=== PATIENT | male | born 1955 | race Caucasian/White ===

== ENCOUNTER → 2017-12-06 | Outpatient (CLI) | payer MEDICARE ==
[~2017-12-06] VITALS: Ht 190.5 cm; Wt 181.0 kg
[~2017-12-06] MED LIST: ASPIRIN 81M81 MG/TA2 PO; KLOR-CON M2020 MEQ PO; LASIX 40MG TABL40 MG PO; MIDAMOR 5MG TAB5 MG PO; PRINIVIL10 MG PO; SYNTHROID0.112 MG/T PO; TOPROL XL100 MG PO; ZAROXOLYN10 MG PO; ZYLOPRIM 300MG300 MG PO
[2017-12-06 11:12] VITALS: BP 134/75; PULSE 81
[2017-12-06 12:00] VITALS: BP 139/71; PULSE 78
[2017-12-06 12:10] VITALS: BP 120/71; PULSE 88
[2017-12-06 12:13] VITALS: BP 134/68; PULSE 94
== END ==
LOC: COL.CARD 10:33
DX: R06.02 Shortness of breath (principal)
CPT/HCPCS: A9502; J2785